=== PATIENT | male | born 1970 | race African-American/Black ===

== ENCOUNTER 2016-09-30 13:29 | Emergency (ER) | payer OTHER ==
[~2016-09-30] VITALS: Ht 152.4 cm; Wt 54.4 kg
[~2016-09-30 13:29] MED LIST: AMOXICILLIN500 MG PO; IBUPROFEN600 M1 PO; PERCOCET 325 MG1 TA2 PO; POLYMYXIN-B/TRI10 ML OPH; TRAMADOL50 MG PO; VOLTAREN 5 ML5 ML OS
--- NOTE | 2016-09-30 13:54 | ED CARDIAC/CP/PALPITATIONS ---
History of Present Illness General Chief Complaint: Chest Pain Stated Complaint: CHEST PAIN Source: patient, old records Exam Limitations: no limitations Vital Signs & Intake/Output Vital Signs & Intake/Output Vital Signs Date Time Temp Pulse Resp B/P Pulse O2 O2 Flow FiO2 Ox Delivery Rate 09/30 1455 97.9 69 16 132/81 98 Room Air 09/30 1356 96 Room Air 09/30 1338 97.1 80 18 131/80 98 Room Air Allergies Coded Allergies: NO KNOWN ALLERGIES (10/21/15) Reconcile Medications No Known Home Medications Triage Note: C/O LEFT SIDED CHEST PAIN SINCE THIS AM WITH LEFT ARM TINGLING. PAIN IS WORSE LAYING DOWN AND WITH INSPIRATION. ALSO C/O LIGHTHEADEDNESS. EKG DONE ON ARRIVAL. Triage Nurses Notes Reviewed? yes HPI: Patient presents with sharp chest pain for the past 2 days. Pain is in the left anterior portion of his chest. There is no radiation. Pain worsens with inspiration and movement. There is no radiation. Patient rates the pain as 6 out of 10. Past History Travel History Traveled to [place] past 21 day No Medical History Any Pertinent Medical History? 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 No Review of Systems Review of Systems Constitutional: Reports: no symptoms. EENTM: Reports: no symptoms. Respiratory: Reports: no symptoms. Cardiovascular: Reports: see HPI, chest pain. GI: Reports: no symptoms. Genitourinary: Reports: no symptoms. Musculoskeletal: Reports: no symptoms. Skin: Reports: no symptoms. Neurological/Psychological: Reports: no symptoms. Hematologic/Endocrine: Reports: no symptoms. Immunologic/Allergic: Reports: no symptoms. All Other Systems: Reviewed and Negative Physical Exam Physical Exam General Appearance: well developed/nourished, alert, awake Head: atraumatic, normal appearance Eyes: Bilateral: PERRL, EOMI. Ears, Nose, Throat: normal pharynx, normal ENT inspection Neck: normal inspection, supple, full range of motion Respiratory: normal breath sounds, no respiratory distress, lungs clear, TENDER TO PALP Cardiovascular: regular rate/rhythm, normal peripheral pulses Gastrointestinal: normal bowel sounds, soft, non-tender Extremities: normal inspection, normal capillary refill, normal range of motion, no edema Neurologic/Psych: no motor/sensory deficits, awake, alert, oriented x 3, normal gait, normal mood/affect Skin: intact, normal color, warm/dry Core Measures ACS in differential dx? Yes ASA ordered for poss ACS? No-ACS ruled out Severe Sepsis Present: No Septic Shock Present: No Progress Differential Diagnosis: AMI, cholecystitis, costochondritis, myocarditis, pericarditis, pneumonia, pneumothorax, pulmonary embolism Plan of Care: Orders Procedure Date/time Status Telemetry/Rehabilitation Program Manager 09/30 1353 Active TROPONIN LEVEL 09/30 1353 Complete COMPREHENSIVE METABOLIC PANEL 09/30 1353 Complete CBC WITHOUT DIFFERENTIAL 09/30 135 Complete EKG 09/30 1330 Active Laboratory Tests 09/30/16 1402: Anion Gap 9, Estimated GFR > 60, BUN/Creatinine Ratio 15.6, Glucose 99, Calcium 9.5, Total Bilirubin 0.6, AST 34, ALT 43, Alkaline Phosphatase 64, Troponin I < 0.01, Total Protein 6.7, Albumin 4.0, Globulin 2.7, Albumin/Globulin Ratio 1.5, CBC w Diff NO MAN DIFF REQ, RBC 5.26, MCV 80.5, MCH 27.0, RDW 13.9, MPV 8.8, Gran % 76.3 H, Lymphocytes % 17.1 L, Monocytes % 4.9, Eosinophils % 1.3, Basophils % 0.4, Absolute Granulocytes 3.4, Absolute Lymphocytes 0.8 L, Absolute Monocytes 0.2, Absolute Eosinophils 0.1, Absolute Basophils 0, PUBS MCHC 33.6 Diagnostic Imaging: Viewed by Me: Radiology Read. Discussed w/RAD: Radiology Read. CXR Impression: PATIENT: CATRACHITO ARNETT PRESENT AGE : 46 PATIENT ACCOUNT NO: [id number] : 71 LOCATION: [facility] ORDERING PHYSICIAN: MARIBEL LEDEZMA MD SERVICE DATE: 09/30/161401 EXAM TYPE: RAD - XRY-CHEST XRAY, PA AND LATERAL EXAMINATION: XR CHEST CLINICAL INFORMATION: Chest pain COMPARISON: Chest x-ray most recent prior dated 10/21/2015 TECHNIQUE: 2 views of the chest were obtained. FINDINGS: Stable Cardia mediastinal silhouette. Mild pleural thickening noted again right apical region. Lungs are clear. Bony thorax is intact. IMPRESSION: Stable mild right apical pleural thickening. No acute pulmonary disease. DICTATED BY: RADHA MACK MD DATE/TIME DICTATED:09/30/161434 CNC MILL OPERATOR:ANDRESSA DATE/TIME TRANSCRIBED:1434 CONFIDENTIAL, DO NOT COPY WITHOUT APPROPRIATE AUTHORIZATION. < Electronically signed in Other Vendor System> SIGNED BY: RADHA MACK MD 09/30/16 1440 Initial ED EKG: NSR, no ST T wave changes Departure Departure Disposition: HOME OR SELF CARE Condition: Stable Clinical Impression Primary Impression: Chest pain Qualifiers: Chest pain type: other chest pain Qualified Code: R07.89 - Other chest pain Referrals: PATIENT HAS NO PRIMARY CARE DR (PCP/Family) Additional Instructions: RETURN IF SYMPTOMS WORSEN OR FO ANY CONCERNS Departure Forms: Customer Survey General Discharge Information Prescriptions: Current Visit Scripts Ibuprofen 1 TAB PO TID PRN PAIN #30 TAB Critical Care Note Critical Care Note Critical Care Time: non-applicable
[2016-09-30 14:23] LABS: ABSOLUTE BASOPHIL COUNT 0 /CUMM (0.0-0.2); ABSOLUTE EOSINOPHIL COUNT 0.1 /CUMM (0.0-0.7); ABSOLUTE GRANULOCYTE CT 3.4 /CUMM (1.4-6.5); ABSOLUTE LYMPH COUNT 0.8 /CUMM (1.2-3.4); ABSOLUTE MONOCYTE COUNT 0.2 /CUMM (0.10-0.60); BASOPHIL % 0.4 % (0.0-2.0); EOSINOPHIL % 1.3 % (0-5); GRANULOCYTE % 76.3 % (42.2-75.2); HEMATOCRIT 42.3 % (42-52); MEAN CORPUSCULAR HGB CONC 33.6 G/DL (33.0-37.0); MEAN CORPUSCULAR VOLUME 80.5 FL (80.0-94.0); MEAN PLATELET VOLUME 8.8 FL (7.4-10.4); PLATELET COUNT 220 /CUMM (130-400); RBC DISTRIBUTION WIDTH 13.9 % (11.5-14.5); RED BLOOD CELL CT 5.26 /CUMM (4.70-6.10); WHITE BLOOD CELL COUNT 4.5 /CUMM (4.8-10.8)
--- NOTE | 2016-09-30 14:40 | RADIOLOGY REPORT ---
EXAMINATION: XR CHEST CLINICAL INFORMATION: Chest pain COMPARISON: Chest x-ray most recent prior dated 10/21/2015 TECHNIQUE: 2 views of the chest were obtained. FINDINGS: Stable Cardia mediastinal silhouette. Mild pleural thickening noted again right apical region. Lungs are clear. Bony thorax is intact. IMPRESSION: Stable mild right apical pleural thickening. No acute pulmonary disease.
[2016-09-30] MEDS ORDERED: IBUPROFEN800 M1 PO (15:30)
[2016-09-30 15:43] VITALS: BP 139/87
== END 2016-09-30 16:05 ==
LOC: ERH 13:29
PROVIDERS: Emergency Medicine
DX: R07.9 Chest pain, unspecified (principal)
CPT/HCPCS: 93005; 93010

== ENCOUNTER 2016-12-12 01:23 | Emergency (ER) | payer OTHER ==
[~2016-12-12] VITALS: Ht 157.5 cm; Wt 65.8 kg
[~2016-12-12 01:23] MED LIST changes: +IBUPROFEN800 M1 PO
--- NOTE | 2016-12-12 02:04 | ED DYSPNEA/ASTHMA COMPLAINT ---
History of Present Illness General Chief Complaint: General Adult Stated Complaint: "PER PT COUGHING AND CHEST PAIN,TIGHTNESS" Source: patient, old records Exam Limitations: no limitations Vital Signs & Intake/Output Vital Signs & Intake/Output Vital Signs Date Time Temp Pulse Resp B/P B/P Pulse O2 O2 Flow FiO2 Mean Ox Delivery Rate 12/12 0131 98.7 93 18 147/90 98 Room Air Allergies Coded Allergies: NO KNOWN ALLERGIES (10/21/15) Reconcile Medications Ibuprofen 800 MG TABLET 1 TAB PO TID PRN PAIN Triage Note: 46YO MALE TO RM 3 W/CO COUGHING AFTER CLEANING W/ AMMONIA AND BLEACH PRODUCTS. STATES "COUGHING IS MAKING HIS CHEST FEEL TIGHT" Triage Nurses Notes Reviewed? yes Onset: Morning Duration: hour(s):, constant, continues in ED Timing: recent history Severity: moderate Activities at Onset: activity Prior Episodes/Possible Cause: irritant gases exposure Associated Symptoms: cough, chest pain, lightheadedness HPI: 1 day prior to admission patient suspects his grandfather cleaning the bathroom with ammonia and he cleaned with bleach then developed nonproductive cough chest tightness. He denies fever chills nausea vomiting diarrhea abdominal pain headache dysuria rash bleeding. Past History Travel History Traveled to [place] past 21 day No Medical History Any Pertinent Medical History? 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 No Review of Systems Review of Systems Constitutional: Reports: no symptoms. EENTM: Reports: no symptoms. Respiratory: Reports: see HPI, cough. Cardiovascular: Reports: see HPI, chest pain. GI: Reports: no symptoms. Genitourinary: Reports: no symptoms. Musculoskeletal: Reports: no symptoms. Skin: Reports: no symptoms. Neurological/Psychological: Reports: no symptoms. Hematologic/Endocrine: Reports: no symptoms. Immunologic/Allergic: Reports: no symptoms. All Other Systems: Reviewed and Negative Physical Exam Physical Exam General Appearance: well developed/nourished, alert, awake, anxious, moderate distress, thin Head: atraumatic, normal appearance Eyes: Bilateral: normal appearance, PERRL, EOMI. Ears, Nose, Throat: normal pharynx, normal ENT inspection Neck: normal inspection, supple, full range of motion, no midline tenderness Respiratory: chest non-tender, lungs clear, decreased breath sounds Cardiovascular: regular rate/rhythm, normal peripheral pulses, norml femoral pulses equa Peripheral Pulses: 4+ carotid (R), 4+ carotid (L) Gastrointestinal: normal bowel sounds, soft, non-tender, no organomegaly Extremities: normal inspection, normal capillary refill, normal range of motion, no edema Neurologic/Psych: no motor/sensory deficits, awake, alert, oriented x 3, normal gait, normal mood/affect, 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 Yes ASA ordered for poss ACS? No-ACS ruled out Severe Sepsis Present: No Septic Shock Present: No Progress Differential Diagnosis: asthma, bronchitis, pneumonia Plan of Care: Orders Procedure Date/time Status EKG 12/12 0126 Active Initial ED EKG: normal axis, normal intervals, normal p-waves, normal QRS complex, normal sinus rhythm, no ST T wave changes Prior EKG: unchanged Departure Departure Time of Disposition: 249 Disposition: HOME OR SELF CARE Condition: Stable Clinical Impression Primary Impression: Pneumonitis due to fumes and vapors Referrals: MERLYN JARRELL,CRESENCIO Browning (PCP/Family) Departure Forms: Customer Survey General Discharge Information Prescriptions: Current Visit Scripts Guaifenesin/Dextromethorphan (Robitussin Cough-Chest Dm Liq) 10 ML PO Q6P PRN cough #240 ML Albuterol Sulfate (Proair Hfa) 2-4 PUF INH Q4-6 PRN PRN shortness of breath #1 INHAL Critical Care Note Critical Care Note Critical Care Time: non-applicable
[2016-12-12] MEDS ORDERED: PROAIR HFA8.5 GM INH (02:51)
[2016-12-12] MEDS ORDERED: ROBITUSSIN COU237 M1 PO (02:51)
[2016-12-12 03:21] VITALS: BP 142/88
[2016-12-12] MEDS ORDERED: IBUPROFEN800 M1 PO (14:10)
== END 2016-12-12 03:21 ==
LOC: ERH 01:23
DX: J68.0 Bronchitis and pneumonitis due to chemicals, gases, fumes and vapors (principal)
CPT/HCPCS: 1263; 93005; 93010

== ENCOUNTER 2017-08-03 01:46 | Emergency (ER) | payer OTHER ==
[~2017-08-03] VITALS: Ht 160 cm; Wt 47.2 kg
[~2017-08-03 01:46] MED LIST changes: +POLYTRIM EYE DR10 ML OPH; +PROAIR HFA8.5 GM INH; +ROBITUSSIN COU237 M1 PO
[2017-08-03 02:25] VITALS: BP 160/96
[2017-08-03] MEDS ORDERED: IBUPROFEN800 M1 PO (02:39)
[2017-08-03] MEDS ORDERED: AUGMENTIN 875-1 EACH PO (02:39)
--- NOTE | 2017-08-03 02:39 | ED GENERAL ADULT ---
History of Present Illness General Chief Complaint: General Adult Stated Complaint: PT C/O SINUS PRESSURE X'S 3 DAYS Source: patient Exam Limitations: no limitations Vital Signs & Intake/Output Vital Signs & Intake/Output Vital Signs Date Time Temp Pulse Resp B/P B/P Pulse O2 O2 Flow FiO2 Mean Ox Delivery Rate 08/03 226 98 Room Air 08/03 224 96.2 70 20 160/96 96 Room Air Allergies Coded Allergies: NO KNOWN ALLERGIES (10/21/15) Reconcile Medications Albuterol Sulfate (Proair Hfa) 90 MCG HFA.AER.AD 2-4 PUF INH Q4-6 PRN PRN shortness of breath Amoxicillin/Potassium Clav (Augmentin 875-125 Tablet) 875 MG-125 MG TABLET 1 TAB PO BID sinusitis Guaifenesin/Dextromethorphan (Robitussin Cough-Chest Dm Liq) 100 MG-5 MG/5 ML LIQUID 10 ML PO Q6P PRN cough Ibuprofen 800 MG TABLET 1 TAB PO TID PRN PAIN OF RIGHT ARMPIT Ibuprofen 800 MG TABLET 1 TAB PO TID PRN pain Ibuprofen 800 MG TABLET 1 TAB PO TID PRN PAIN Oxymetazoline HCl (Afrin) 0.05 % SPRAY 1 SPRAY IN TID SINUS CONGESTION X3 DAYS MAXIMUM Polytrim (Polytrim Eye Drops) 10,000 UNIT-1 MG/ML DROPS 2 GTT OPH Q6 EYE INFECTION X 7 DAYS Triage Note: PT FROM HOME C/O SINUS PRESSURE IN FOREHEAD AND UNDER EYES X3 DAYS. PT STATES HE TOOK TYLENOL, NYQUIL, AND DAYQUIL WITHOUT ANY RELIEF. Triage Nurses Notes Reviewed? yes Onset: Gradual Duration: day(s):, waxing and waning Timing: recent history Injury Environment: home Severity: mild, moderate Modifying Factors: Improves With: rest. Associated Symptoms: sinus congestion HPI: 47 yo gentleman with 3 days of sinus congestion, subjective low grade temps, sore throat, without ear pain, phlegmatous cough, wheezing, dyspnea, diarrhea, dysuria. He notes body aches. he is otherwise well. Past History Travel History Traveled to [place] past 21 day No Medical History Any Pertinent Medical History? 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 No Review of Systems Review of Systems Constitutional: Reports: no symptoms. EENTM: Reports: no symptoms. Respiratory: Reports: no symptoms. Cardiovascular: Reports: no symptoms. GI: Reports: no symptoms. Genitourinary: Reports: no symptoms. Musculoskeletal: Reports: no symptoms. Skin: Reports: no symptoms. Neurological/Psychological: Reports: no symptoms. Hematologic/Endocrine: Reports: no symptoms. Immunologic/Allergic: Reports: no symptoms. All Other Systems: Reviewed and Negative Physical Exam Physical Exam General Appearance: well developed/nourished, mild distress Head: atraumatic, normal appearance Eyes: Bilateral: normal appearance. Ears, Nose, Throat: normal pharynx, normal ENT inspection, sinus pain/drainage, nasal congestion, maxillary sinus tenderness to palpation. Neck: normal inspection, supple Respiratory: normal breath sounds, chest non-tender Cardiovascular: regular rate/rhythm Gastrointestinal: normal bowel sounds, soft, non-tender Back: normal inspection Extremities: normal inspection, normal capillary refill, normal range of motion, no edema Neurologic/Psych: no motor/sensory deficits, awake, alert, oriented x 3 Skin: intact, normal color, warm/dry Core Measures ACS in differential dx? No CVA/TIA Diagnosis: No Sepsis Present: No Sepsis Focused Exam Completed? No Progress Differential Diagnoses I considered the following diagnoses in my evaluation of the patient: sinusitis vs influenza vs other. Plan of Care: Orders Procedure Date/time Status RAPID VIRAL INFLUENZA A 08/03 0238 Complete Current Medications Sig/Heather Start time Last Medication Dose Stop Time Status Admin Ibuprofen 800 MG ONCE ONE 08/03 0300 UNVr 08/03 (Motrin) 08/03 0301 0255 Microbiology 08/03 0245 NASOPHARYN: Influenza Virus A & B Rapid Smear - COMP Initial ED EKG: none Departure Departure Disposition: HOME OR SELF CARE Condition: Stable Clinical Impression Primary Impression: Sinusitis Referrals: Janeen JARRELL,Bronson Browning (PCP/Family) Departure Forms: Customer Survey General Discharge Information Prescriptions: Current Visit Scripts Ibuprofen 1 TAB PO TID PRN pain #30 TAB Amoxicillin/Potassium Clav (Augmentin 875-125 Tablet) 1 TAB PO BID #20 TAB Oxymetazoline HCl (Afrin) 1 SPRAY IN TID #1 SPRAY X3 DAYS MAXIMUM Comments 08/03/17, 3:02AM... pt with negative influenza swab... exam and history suggestive of sinusitis... gave rx for augmentin... pt safe for discharge with close follow up advised. Critical Care Note Critical Care Note Critical Care Time: non-applicable
[2017-08-03] MEDS ORDERED: AFRIN30 ML IN (03:02)
== END 2017-08-03 03:04 ==
LOC: ERH 01:46
DX: J32.9 Chronic sinusitis, unspecified (principal); J02.9 Acute pharyngitis, unspecified
CPT/HCPCS: 87804; 87804-59

== ENCOUNTER 2017-10-10 17:20 | Inpatient (IN) | payer OTHER ==
[~2017-10-10] VITALS: Ht 157.5 cm; Wt 62.7 kg
[~2017-10-10 17:20] MED LIST changes: +AFRIN30 ML IN; +AUGMENTIN 875-1 EACH PO; +PERCOCET 5-3251 EACH PO; +ZOFRAN ODT4 M1 SL
--- NOTE | 2017-10-10 18:25 | ULTRASOUND REPORT ---
EXAMINATION: US ABDOMEN LIMITED CLINICAL INFORMATION: Epigastric pain. Recent pancreatitis.. COMPARISON: CT scan abdomen pelvis 10/01/2017 TECHNIQUE: Real-time imaging of the right upper quadrant abdominal viscera. Color Doppler exam used. FINDINGS: PANCREAS: Not well visualized. Obscured by bowel gas. LIVER: Normal. The liver demonstrates normal size, contour and echogenicity. No focal lesion or intrahepatic biliary duct dilatation. GALLBLADDER: Normal. The gallbladder is physiologically distended without evidence of stones, sludge, polyps, wall thickening or pericholecystic fluid. COMMON BILE DUCT: Normal in caliber measuring 0.5 cm in diameter. RIGHT KIDNEY: Normal. No hydronephrosis. No renal calculi or focal parenchymal lesions. The kidney measures 9.8 cm in maximum dimension. FREE FLUID: None. IMPRESSION: Pancreas is not well seen due to bowel gas. There is no acute change of the abdomen.
[2017-10-10 19:15] LABS: ABSOLUTE BASOPHIL COUNT 0 /CUMM (0.0-0.2); ABSOLUTE EOSINOPHIL COUNT 0.1 /CUMM (0.0-0.7); ABSOLUTE GRANULOCYTE CT 6.2 /CUMM (1.4-6.5); ABSOLUTE LYMPH COUNT 0.6 /CUMM (1.2-3.4); ABSOLUTE MONOCYTE COUNT 0.4 /CUMM (0.10-0.60); BASOPHIL % 0.1 % (0.0-2.0); EOSINOPHIL % 1.3 % (0-5); MEAN CORPUSCULAR HGB 26.3 PG (27.0-31.0); MEAN CORPUSCULAR HGB CONC 32.2 G/DL (33.0-37.0); MEAN CORPUSCULAR VOLUME 81.9 FL (80.0-94.0); MEAN PLATELET VOLUME 8.5 FL (7.4-10.4); PLATELET COUNT 276 /CUMM (130-400); RED BLOOD CELL CT 5.98 /CUMM (4.70-6.10); WHITE BLOOD CELL COUNT 7.2 /CUMM (4.8-10.8)
--- NOTE | 2017-10-10 21:04 | ED GI/GU/ABDOMINAL COMPLAINT ---
History of Present Illness General Chief Complaint: Abdominal Pain/Flank Pain Stated Complaint: ABD PAIN Source: patient, old records Exam Limitations: no limitations Vital Signs & Intake/Output Vital Signs & Intake/Output Vital Signs Date Time Temp Pulse Resp B/P B/P Pulse O2 O2 Flow FiO2 Mean Ox Delivery Rate 10/106 Room Air 10/10 2106 98.1 67 20 128/82 99 Room Air 10/10 1727 98.4 87 18 135/90 98 Room Air ED Intake and Output 10/11 0000 10/10 1200 Intake Total Output Total Balance Patient 140 lb Weight Allergies Coded Allergies: NO KNOWN ALLERGIES (10/21/15) Reconcile Medications Ondansetron (Zofran Odt) 4 MG TAB.RAPDIS 1 TAB SL TID PRN NAUSEA Oxycodone HCl/Acetaminophen (Percocet 5-325 MG Tablet) 5 MG-325 MG TABLET 1-2 TAB PO Q6P PRN PAIN Triage Note: PT TO ER C/C ABD PAIN X 1 DAY, WAS SEEN IN ER 4/7 DX WITH PANCREATITIS WAS ADVISED TO FOLLOW LIQUID DIET AND TAKE OXYCODONE NEEDED FOR PAIN. PT STATES +N/D TODAY. TOOK 2 OXYCODONE RECRUITING AND SELECTION CONSULTANT. HOWEVER, PAIN PERSISTS. Triage Nurses Notes Reviewed? yes Onset: Abrupt Duration: day(s): Timing: recent history Quality/Severity: moderate, sharpness, severe Location: epigastric Radiation: no radiation No Modifying Factors: none HPI: 47-year-old male comes into the emergency room for further evaluation of epigastric pain. Patient symptoms and being going on for the past couple weeks. Patient was seen here 8 days ago diagnosed with pancreatitis. He did not want to stay at that time and left. Denies any alcohol use. Denies any fever. Some intermittent nausea vomiting. Increased pain today. He comes in for further evaluation. (Robert Miller) Past History Travel History Traveled to [place] past 21 day No Medical History Any Pertinent Medical History? 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 No (Robert Miller) Review of Systems Review of Systems Constitutional: Reports: no symptoms. EENTM: Reports: no symptoms. Respiratory: Reports: no symptoms. Cardiovascular: Reports: no symptoms. GI: Reports: see HPI. Genitourinary: Reports: no symptoms. Musculoskeletal: Reports: no symptoms. Skin: Reports: no symptoms. Neurological/Psychological: Reports: no symptoms. Hematologic/Endocrine: Reports: no symptoms. Immunologic/Allergic: Reports: no symptoms. All Other Systems: Reviewed and Negative (Robert Miller) Physical Exam Physical Exam General Appearance: well developed/nourished, no apparent distress, alert, awake Head: atraumatic, normal appearance Eyes: Bilateral: normal appearance. Ears, Nose, Throat, Mouth: hearing grossly normal, moist mucous membrane Neck: normal inspection Respiratory: no respiratory distress Cardiovascular: regular rate/rhythm Gastrointestinal: soft, tenderness Back: normal inspection Extremities: normal range of motion Neurologic/Psych: awake, alert, oriented x 3, normal gait, normal mood/affect Core Measures ACS in differential dx? No Sepsis Present: No Sepsis Focused Exam Completed? No (Robert Miller) Progress Differential Diagnosis: AMI, bowel obstruction, cholecystitis, diverticulitis, gastritis, ischemic bowel, pancreatitis, prostatitis, peptic ulcer, PUD/GERD, perforated viscous, SBO Plan of Care: Orders Procedure Date/time Status Clear Liquid Diet 10/11 B Active TROPONIN LEVEL 10/11 0600 Active LIPID PANEL 10/11 0600 Active CBC WITHOUT DIFFERENTIAL 10/11 0600 Active BASIC ELECTROLYTES PLUS BUN&CR 10/11 0600 Active EKG 10/11 0600 Active Pathway - chart 10/10 2217 Active URINE DRUGS OF ABUSE 10/11 2215 Active URINALYSIS 10/11 2215 Active Add-on Test (ER Only) 10/11 2207 Active Patient Data 10/10 2205 Active Intake & Output 10/10 214 Active Saline Lock 10/10 2124 Active Misc Message 10/10 2124 Active ED Holding Orders 10/10 2124 Active Admit to inpatient 10/10 2124 Active Vital Signs 10/10 2124 Active Code Status 10/10 2124 Active Add-on Test (ER Only) 10/10 2110 Active Add-on Test (ER Only) 10/10 2056 Active THYROID STIMULATING HORMONE 10/10 184 Active TRIGLYCERIDES 10/10 184 Active GLYCOSYLATED HGB 10/10 184 Active GAMMA GLUTAMYL TRANSFERASE 10/10 184 Active FREE T4 10/10 184 Active ETHANOL 10/10 184 Active TROPONIN LEVEL 10/10 1725 Active LIPASE 10/10 172 Active COMPREHENSIVE METABOLIC PANEL 10/10 172 Active CBC WITHOUT DIFFERENTIAL 10/10 172 Complete AMYLASE 10/10 172 Active EKG 10/10 172 Active House Staff 10/10 UNK Active VTE Mechanical Prophylaxis 10/10 UNK Active Current Medications Sig/Heather Start time Last Medication Dose Stop Time Status Admin Enoxaparin Sodium 40 MG DAILY 10/11 0900 AC (Lovenox) Lactated Ringer's 1,000 ML Q6H 10/10 2230 AC (Lactated Ringers) 10/11 1029 Morphine Sulfate 2 MG Q6PRN PRN 10/10 223 AC (MORPHINE SULFATE) Ondansetron HCl 4 MG Q6P PRN 10/10 223 AC (Zofran) Lactated Ringer's 1,000 ML ONCE ONE 10/10 2100 AC 10/10 (Lactated Ringers) 10/11 0339 2142 Laboratory Tests 10/10/171842: Anion Gap 11, Estimated GFR > 60, BUN/Creatinine Ratio 16.0, Glucose 92, Hemoglobin A1c Pending, Calcium 9.7, Total Bilirubin 0.9, GGT 13 L, AST 49, ALT 62, Alkaline Phosphatase 92, Troponin I < 0.01, Total Protein 8.1, Albumin 4.9, Globulin 3.2, Albumin/Globulin Ratio 1.5, Triglycerides 95, Amylase 161 H, Lipase 497 H, TSH 0.432, Free T4 0.87, CBC w Diff NO MAN DIFF REQ, RBC 5.98, MCV 81.9, MCH 26.3 L, MCHC 32.2 L, RDW 15.0 H, MPV 8.5, Gran % 86.0 H, Lymphocytes % 7.6 L, Monocytes % 5.0, Eosinophils % 1.3, Basophils % 0.1, Absolute Granulocytes 6.2, Absolute Lymphocytes 0.6 L, Absolute Monocytes 0.4, Absolute Eosinophils 0.1, Absolute Basophils 0, Serum Alcohol < 10.0 Diagnostic Imaging: Viewed by Me: Ultrasound. Discussed w/RAD: Ultrasound. Radiology Impression: PATIENT: CATRACHITO ARNETT PRESENT AGE: 47 PATIENT ACCOUNT NO: [id number] : 71 LOCATION: [facility] ORDERING PHYSICIAN: Robert FUNES SERVICE DATE: 10/10/17 EXAM TYPE : US - US-LIMITED ABDOMEN EXAMINATION: US ABDOMEN LIMITED CLINICAL INFORMATION: Epigastric pain. Recent pancreatitis.. COMPARISON: CT scan abdomen pelvis 2017 TECHNIQUE: Real-time imaging of the right upper quadrant abdominal viscera. Color Doppler exam used. FINDINGS: PANCREAS: Not well visualized. Obscured by bowel gas. LIVER: Normal. The liver demonstrates normal size, contour and echogenicity. No focal lesion or intrahepatic biliary duct dilatation. GALLBLADDER: Normal. The gallbladder is physiologically distended without evidence of stones, sludge, polyps, wall thickening or pericholecystic fluid. COMMON BILE DUCT: Normal in caliber measuring 0.5 cm in diameter. RIGHT KIDNEY: Normal. No hydronephrosis. No renal calculi or focal parenchymal lesions. The kidney measures 9.8 cm in maximum dimension. FREE FLUID: None. IMPRESSION: Pancreas is not well seen due to bowel gas. There is no acute change of the abdomen. DICTATED BY: Bernabe Aguilar MD DATE/TIME DICTATED:10/10/171819 ETL DATA ARCHITECT:ANDRESSA DATE/TIME TRANSCRIBED:10/10/171819 CONFIDENTIAL, DO NOT COPY WITHOUT APPROPRIATE AUTHORIZATION. <Electronically signed in Other Vendor System> SIGNED BY: Bernabe Aguilar MD 10/10/171824 Initial ED EKG: normal sinus rhythm, rate (67) (Robert Miller) Departure Departure Disposition: HOME OR SELF CARE Condition: Stable Clinical Impression Primary Impression: Acute pancreatitis Referrals: Bronson Vernon MD (PCP/Family) Departure Forms: Customer Survey General Discharge Information Admission Note Spoke With: Zaynab Salcedo MD Documentation of Exam: Documentation of any treatments & extenuating circumstances including Concerns Regarding Discharge (functional status, medication knowledge or non-compliance, living conditions, etc.) that warrant an admission rather than observation: IV fluids. IV pain control. GI consultation. IV antiemetics. (Robert Miller) PA/CRACKING STILL OPERATOR Co-Sign Statement Statement: ED Attending supervision documentation- [x] I saw and evaluated the patient. I have also reviewed all the pertinent lab results and diagnostic results. I agree with the findings and the plan of care as documented in the PA's/CRACKING STILL OPERATOR's documentation. 10/10/17, 23:30... pt resting comfortably, mild mid epigastric tenderness to palpation. labs noted... pt to be admitted for iv fluids, bowel rest, supportive measures. [] I have reviewed the ED Record and agree with the PA's/CRACKING STILL OPERATOR's documentation. [] Additions or exceptions (if any) to the PAs/CRACKING STILL OPERATOR's note and plan are summarized below: [] (Pilo JARRELL,Paul Plunkett)
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
--- NOTE | 2017-10-10 22:39 | Admission Certification ---
Admission Certification Certification Statement - As attending physician, I certify that at the time of - admission, based on clinical presentation, severity of - symptoms, need for further diagnostic testing and - therapeutic interventions, and risk of adverse outcomes - without in-hospital treatment, in my clinical assessment, - this patient requires an acute hospital stay for a minimum - of two nights or longer. I have also considered psychsocial - factors such as support system, advanced age, financial - issues, cognitive issues, and failed out-patient treatments, - past re-admission history, safety of patient, and lack of - compliance as applicable. Specific rationale supporting this admission is: Acute pancreatitis.
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
[2017-10-11 01:01] VITALS: BP 118/78
[2017-10-11 06:03] VITALS: BP 120/72
--- NOTE | 2017-10-11 07:03 | PN- Housestaff ---
See Addendum Subjective Follow-up For: Epigastric pain, likely pancreatitis Subjective: No overnight events. Patient notes that he began having abdominal pain on October 01. Prior to that, he had had 2 shots of alcohol while going out. He came to the ER and left despite the morning him to stay. He then maintain himself on a clear liquid diet but did have some solid. He then had recurrence of the abdominal pain came back the emergency room. Since last night, his abdominal pain has resolved and he is feeling hungry. He says he only had 1 shot of alcohol since his last ER visit. He denies recreational drug abuse. He denies any family history of autoimmune disease. 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 Review of Systems Constitutional: Reports: no symptoms. EENTM: Reports: no symptoms. Cardiovascular: Reports: no symptoms. Respiratory: Reports: no symptoms. Gastrointestinal: Reports: see HPI. Genitourinary: Reports: no symptoms. Musculoskeletal: Reports: no symptoms. Skin: Reports: no symptoms. Neurological/Psychological: Reports: no symptoms. Hematologic/Endocrine: Reports: no symptoms. Immunologic/Allergic: Reports: no symptoms. Objective Last 24 Hrs of Vital Signs/I&O Vital Signs Date Time Temp Pulse Resp B/P B/P Pulse O2 O2 Flow FiO2 Mean Ox Delivery Rate 10/11 0603 97.8 60 20 120/72 97 Room Air 10/11 0101 98.0 57 20 118/78 96 Room Air 10/11 0008 97.9 61 18 135/87 98 Room Air 10/10 2146 Room Air 10/10 2107 98.1 67 20 128/82 99 Room Air 10/10 1727 98.4 87 18 135/90 98 Room Air Intake & Output 10/11 0800 10/11 0000 10/10 1600 Intake Total Output Total Balance Patient 62.709 kg 63.503 kg Weight Weight Bed scale Measurement Method Physical Exam General Appearance: Alert, Oriented X3, Cooperative, No Acute Distress Cardiovascular: Regular Rate, Normal S1, Normal S2 Lungs: mild crackles Abdomen: Normal Bowel Sounds, slightly rigid but nontender Extremities: No Edema, Normal Pulses, No Tenderness/Swelling Current Medications: Current Medications Sig/Heather Start time Last Medication Dose Route Stop Time Status Admin Enoxaparin Sodium 40 MG DAILY 10/11 0900 AC SC Lactated Ringer's 1,000 ML Q6H 10/10 2229 AC 10/11 IV 10/11 1029 0616 Lactated Ringer's 1,000 ML ONCE ONE 10/10 2100 DC 10/10 IV 10/11 0339 2142 Morphine Sulfate 2 MG Q6PRN PRN 10/10 2229 AC 10/11 IV 0611 Morphine Sulfate 0 .STK-MED ONE 10/10 2142 DC .ROUTE Morphine Sulfate 4 MG ONCE ONE 10/10 2100 DC 10/10 IV 10/10 Ondansetron HCl 4 MG Q6P PRN 10/10 2229 AC IV Ondansetron HCl 0 .STK-MED ONE 10/11 2143 DC .ROUTE Ondansetron HCl 4 MG ONCE ONE 10/10 2100 DC 10/10 IV 10/10 Last 24 Hrs of Lab/Jose Manuel Results Last 24 Hrs of Labs/Mics: Laboratory Tests 10/10/17 1843: Anion Gap 11, Estimated GFR > 60, BUN/Creatinine Ratio 16.0, Glucose 92, Hemoglobin A1c Pending, Calcium 9.7, Total Bilirubin 0.9, GGT 13 L, AST 49, ALT 62, Alkaline Phosphatase 92, Troponin I < 0.01, Total Protein 8.1, Albumin 4.9, Globulin 3.2, Albumin/Globulin Ratio 1.5, Triglycerides 95, Amylase 161 H, Lipase 497 H, TSH 0.432, Free T4 0.87, CBC w Diff NO MAN DIFF REQ, RBC 5.98, MCV 81.9, MCH 26.3 L, MCHC 32.2 L, RDW 15.0 H, MPV 8.5, Gran % 86.0 H, Lymphocytes % 7.6 L, Monocytes % 5.0, Eosinophils % 1.3, Basophils % 0.1, Absolute Granulocytes 6.2, Absolute Lymphocytes 0.6 L, Absolute Monocytes 0.4, Absolute Eosinophils 0.1, Absolute Basophils 0, Serum Alcohol < 10.0 Assessment/Plan Assessment: Mr. Castellanos is a 47-year-old male with a no significant past medical history who presented with epigastric pain. Problem list: 1. Epigastric pain 2. Nonspecific ECG changes #Epigastric pain: Patient admitted for epigastric pain thought to be secondary to pancreatitis given elevated lipase. However CT imaging on 10/01/17 did not show any pancreatic inflammation and abdominal ultrasound did not visualize the pancreas. Other items in the differential include GERD and [place]. First of troponin was negative. -LR @ 150 cc/hr -IV Morphine for pain -IV ondansetron for nausea -EKG and troponins 2 -Urine toxicology -Appreciate GI recommendations -Consider starting PPI DVT prophylaxis with enoxaparin Clear liquid diet Full code Problem List: 1. Epigastric abdominal pain Pain Ratin Pain Location: no Pain Goal: Remain pain free Pain Plan: see a/p Tomorrow's Labs & Rationales: no
[2017-10-11 09:08] LABS: ABSOLUTE BASOPHIL COUNT 0 /CUMM (0.0-0.2); ABSOLUTE EOSINOPHIL COUNT 0.1 /CUMM (0.0-0.7); ABSOLUTE GRANULOCYTE CT 2.6 /CUMM (1.4-6.5); ABSOLUTE LYMPH COUNT 0.5 /CUMM (1.2-3.4); ABSOLUTE MONOCYTE COUNT 0.3 /CUMM (0.10-0.60); BASOPHIL % 0.1 % (0.0-2.0); EOSINOPHIL % 3.7 % (0-5); GRANULOCYTE % 73.1 % (42.2-75.2); MEAN CORPUSCULAR HGB 26.3 PG (27.0-31.0); MEAN CORPUSCULAR HGB CONC 32.1 G/DL (33.0-37.0); MEAN CORPUSCULAR VOLUME 81.8 FL (80.0-94.0); MEAN PLATELET VOLUME 8.7 FL (7.4-10.4); PLATELET COUNT 206 /CUMM (130-400); WHITE BLOOD CELL COUNT 3.6 /CUMM (4.8-10.8)
[2017-10-11 09:29] LABS: HEMATOCRIT 41.7 % (42-52)
[2017-10-11 14:06] VITALS: BP 130/70
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
[2017-10-11 21:45] VITALS: BP 130/80
[2017-10-12 05:58] VITALS: BP 130/78
--- NOTE | 2017-10-12 07:01 | PN- Housestaff ---
See Addendum Subjective Follow-up For: Acute pancreatitis Subjective: No overnight events. Patient feels well this morning and would like to go home. Review of Systems Constitutional: Reports: no symptoms. EENTM: Reports: no symptoms. Cardiovascular: Reports: no symptoms. Respiratory: Reports: no symptoms. Gastrointestinal: Reports: no symptoms. Genitourinary: Reports: no symptoms. Musculoskeletal: Reports: no symptoms. Skin: Reports: no symptoms. Neurological/Psychological: Reports: no symptoms. Hematologic/Endocrine: Reports: no symptoms. Immunologic/Allergic: Reports: no symptoms. Objective Last 24 Hrs of Vital Signs/I&O Vital Signs Date Time Temp Pulse Resp B/P B/P Pulse O2 O2 Flow FiO2 Mean Ox Delivery Rate 10/12 0558 98.1 60 18 130/78 97 Room Air 10/11 2145 98.1 66 20 130/80 96 Room Air 10/11 1406 97.9 62 20 130/70 97 Room Air Intake & Output 10/12 0800 10/12 0000 10/11 1600 Intake Total 240 2020.5 240 Output Total 400 1000 400 Balance -160 1020.5 -160 Intake, IV 20.5 Intake, Oral 240 2000 240 Number 0 Bowel Movements Output, Urine 400 1000 400 Physical Exam General Appearance: Alert, Oriented X3, Cooperative, No Acute Distress Cardiovascular: Regular Rate, Normal S1, Normal S2 Lungs: Clear to Auscultation Abdomen: Normal Bowel Sounds, Soft, No Tenderness Extremities: No Edema, Normal Pulses, No Tenderness/Swelling Current Medications: Current Medications Sig/Heather Start time Last Medication Dose Route Stop Time Status Admin Enoxaparin Sodium 40 MG DAILY 10/11 0900 10/11 SC 0736 Lactated Ringer's 1,000 ML Q6H 10/10 2229 DC 10/11 IV 10/11 1029 0616 Morphine Sulfate 2 MG Q6PRN PRN 10/10 2229 AC 10/12 IV 0536 Omeprazole 20 MG DAILY 10/12 0700 UNVr PO Ondansetron HCl 4 MG Q6P PRN 10/10 2229 IV Patient Medication 1 ED ONE ONE 10/11 1645 [place] Teaching ED 10/11 1646 Last 24 Hrs of Lab/Jose Manuel Results Last 24 Hrs of Labs/Mics: Laboratory Tests 10/11/17 0810: Anion Gap 10, Estimated GFR > 60, BUN/Creatinine Ratio 13.3, Troponin I < 0.01, C-Reactive Prot, Quant 2.0 H, Triglycerides 100, Cholesterol 97, LDL Cholesterol, Calc 35 L, HDL Cholesterol 42, Cholesterol/HDL Ratio 2, CBC w Diff NO MAN DIFF REQ, RBC 5.10, MCV 81.8, MCH 26.3 L, MCHC 32.1 L, RDW 15.0 H, MPV 8.7, Gran % 73.1, Lymphocytes % 13.8 L, Monocytes % 9.3, Eosinophils % 3.7, Basophils % 0.1, Absolute Granulocytes 2.6, Absolute Lymphocytes 0.5 L, Absolute Monocytes 0.3, Absolute Eosinophils 0.1, Absolute Basophils 0, IgG Total Pending, IgG1 Pending, IgG2 Pending, IgG3 Pending, IgG4 Pending Assessment/Plan Assessment: Mr. Castellanos is a 47-year-old male with a no significant past medical history who presented with epigastric pain. Problem list: 1. Acute pancreatitis 2. Nonspecific ECG changes #Acute pancreatitis: Patient admitted for epigastric pain thought to be secondary to pancreatitis given elevated lipase. CT imaging on 10/01/17 did not show any pancreatic inflammation and abdominal ultrasound did not visualize the pancreas. However, CT was done without contrast. Per GI, etiology of pancreatitis is unclear. He does not report significant alcohol history, triglycerides are normal, and there is no gallstone on imaging. Other item in the differential include GERD. EKG and troponins 2 were negative. His symptoms have improved quickly and he is ready for discharge today. -IV ondansetron for nausea -Appreciate GI recommendations -Continue omeprazole -Outpatient GI follow-up DVT prophylaxis with enoxaparin Regular diet Full code Problem List: 1. Acute pancreatitis Pain Ratin Pain Location: no Pain Goal: Remain pain free Pain Plan: see a/p Tomorrow's Labs & Rationales: no
--- NOTE | 2017-10-12 07:04 | Patient Discharge Instructions ---
Discharge Instructions General Discharge Information You were seen/treated for: Acute pancreatitis Watch for these problems: Fever, chest pain, shortness of breath Special Instructions: Please take all medications as directed. Please follow-up with primary care and gastroenterology. Diet Continue normal diet: Yes Additional DIET Information: Avoid alcohol Activity Full Activity/No Limits: Yes Acute Coronary Syndrome Inclusion Criteria At DC or during hospital stay patient has or had the following: ACS DIAGNOSIS No Discharge Core Measures Meds if any: Prescribed or Continued at Discharge Meds if any: NOT Prescribed or Continued at Discharge Congestive Heart Failure Inclusion Criteria At DC or during hospital stay patient has or had the following: CHF DIAGNOSIS No Discharge Core Measures Meds if any: Prescribed or Continued at Discharge Meds if any: NOT Prescribed or Continued at Discharge Cerebrovascular accident Inclusion Criteria At DC or during hospital stay patient has or had the following: CVA/TIA Diagnosis No Discharge Core Measures Meds if any: Prescribed or Continued at Discharge Meds if any: NOT Prescribed or Continued at Discharge Venous thromboembolism Inclusion Criteria VTE Diagnosis No VTE Type NONE VTE Confirmed by (Test) NONE Discharge Core Measures - Per Current guidelines, there needs to be overlap - treatment for the first 5 days of Warfarin therapy. - If discharged on Warfarin prior to 5 days of - overlap therapy, the patient will need to be - assessed for post discharge needs including - *Post discharge parental anticoagulation - *Warfarin and/or parental anticoagulation education - *Follow up date to check INR post discharge At least 5 days overlap therapy as Inpatient No Meds if any: Prescribed or Continued at Discharge Note: Overlap Therapy is Warfarin and Anticoagulant Meds if any: NOT Prescribed or Continued at Discharge
[2017-10-12] MEDS ORDERED: TRAZODONE HCL50 M1 PO (10:02)
[2017-10-12] MEDS ORDERED: OMEPRAZOLE20 M2 PO ×2 (10:03→10:10)
--- NOTE | 2017-10-12 10:05 | Discharge Summary ---
Visit Information Visit Dates Admission Date: 10/10/17 Discharge Date: 10/12/17 Hospital Course Course Attending Physician: Erma Damico MD Primary Care Physician: Bronson Vernon MD Hospital Course: Mr. Castellanos is a 47-year-old male with a no significant past medical history who presented with epigastric pain. Admission Data: Vitals stable. Exam: dry mucosa, Abd soft, voluntary guarding, epigastric and RUQ tenderness with negative miner's, BS+. Labs: H/H 15.8/49, trop neg, LFTs normal, Triglyceride 95, lipase was 1759 --> 497 (today). Alcohol < 10. CT abd/pelvis (October 01): no acute process. Abd ultrasound (October 10): pancreas not well seen due to bowel gas, gallbladder is physiologically distended without evidence of stones, sludge or wall thickening. CXR: unremarkable. EKG: SR, with poor R-wave progression, mild J-point elevation in V2-4 (seen on previous EKG), TWI in I, aVL , V5-6 (seen on pld EKG), Qtc 423. He was admitted to general medicine and treated for the following problems: 1. Acute pancreatitis 2. Nonspecific ECG changes #Acute pancreatitis: Patient admitted for epigastric pain thought to be secondary to pancreatitis given elevated lipase. CT imaging on 10/01/17 did not show any pancreatic inflammation and abdominal ultrasound did not visualize the pancreas. However, CT was done without contrast. Per GI, etiology of pancreatitis is unclear. He does not report significant alcohol history, triglycerides are normal, and there is no gallstone on imaging. Other item in the differential include GERD. EKG and troponins 2 were negative. His symptoms have improved quickly and he is ready for discharge today. He will follow up with GI and continue on the proton pump inhibitor. Allergies: Coded Allergies: NO KNOWN ALLERGIES (10/21/15) Disposition Summary Disposition Principal Diagnosis: 1. Acute pancreatitis Additional Diagnosis: 2. Nonspecific ECG changes Discharge Disposition: home or self care Discharge Instructions General Discharge Information Code Status: Full Code Patient's Diet: Regular diet Patient's Activity: As tolerated Follow-Up Instructions/Appts: Please take all medications as directed. Please follow-up with primary care and gastroenterology. Medications at Discharge Discharge Medications: Stop taking the following medications: Ondansetron (Zofran Odt) 4 MG TAB.RAPDIS SUBLINGUAL THREE TIMES DAILY as needed for NAUSEA Qty = 10 Continue taking these medications: Trazodone HCl (Trazodone HCl) 50 MG TABLET 1 Tablet ORAL Every night as needed for Insominia Qty = 30 Comments: NOT GIVEN Start taking the following new medications: Omeprazole (Omeprazole) 20 MG CAPSULE.DR 20 Milligram ORAL DAILY BEFORE BREAKFAST Qty = 30 No Refills Instructions: . Comments: Last Taken:10/12/17 Time:0700 The following medications have been changed: Old: Oxycodone HCl/Acetaminophen (Percocet 5-325 MG Tablet) 5 MG-325 MG TABLET 1-2 Tablet ORAL EVERY SIX HOURS NEEDED as needed for SEVERE PAIN Qty = 10 New: Oxycodone HCl/Acetaminophen (Percocet 5-325 MG Tablet) 5 MG-325 MG TABLET 1-2 Tablet ORAL EVERY SIX HOURS NEEDED as needed for SEVERE PAIN Qty = 10 Instructions: . Comments: NOT GIVEN Copies To: Feliciano JARRELL,Drew Robertson; Janeen JARRELL,Bronson Browning
[2017-10-12] MEDS ORDERED: PERCOCET 5-3251 EACH PO ×2 (10:10)
== END 2017-10-12 10:46 | DRG 440 ==
LOC: ERH 17:20 → ERHI 21:25 → 2NB 21:25 → ENRESERV 22:48 → 2NB 10-11 00:41 → ENPENDDIS 10-12 10:13 → 2NB 10-12 10:46
PROVIDERS: Internal Medicine; Physician Assistant Medical
DX: K85.90 Acute pancreatitis without necrosis or infection, unspecified (principal); I10 Essential (primary) hypertension; Z79.891 Long term (current) use of opiate analgesic; Z90.49 Acquired absence of other specified parts of digestive tract; R19.7 Diarrhea, unspecified; R94.31 Abnormal electrocardiogram [ECG] [EKG]
CPT/HCPCS: 2NBSP; ERO; 36592; 71046; 80307; 81003; 82436; 93005; 93010; G0480; J1650; J2405

== ENCOUNTER 2017-10-25 22:33 | Emergency (ER) | payer OTHER ==
[~2017-10-25 22:33] MED LIST changes: +OMEPRAZOLE20 M2 PO; +TRAZODONE HCL50 M1 PO
[2017-10-25 22:38] VITALS: BP 160/100
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
[2017-10-25] MEDS ORDERED: NORCO 5-325 TA1 EACH PO (23:19)
[2017-10-25] MEDS ORDERED: AUGMENTIN 875-1 EACH PO (23:19)
== END 2017-10-25 23:22 ==
LOC: ERH 22:33
DX: K08.89 Other specified disorders of teeth and supporting structures (principal)

== ENCOUNTER 2018-01-16 23:56 | Emergency (ER) | payer OTHER ==
[~2018-01-16] VITALS: Ht 157.5 cm; Wt 63.5 kg
[~2018-01-16 23:56] MED LIST changes: +NORCO 5-325 TA1 EACH PO
[2018-01-17 00:08] VITALS: BP 118/78
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
[2018-01-17] MEDS ORDERED: HYDROXYZINE HCL25 M2 PO (00:36)
[2018-01-17] MEDS ORDERED: PREDNISONE20 M1 PO (00:36)
[2018-01-17] MEDS ORDERED: CALAMINE SUSPE177 ML TOP (00:36)
== END 2018-01-17 00:38 ==
LOC: ERH 23:56
DX: L23.7 Allergic contact dermatitis due to plants, except food (principal)